=== PATIENT | female | born 1970 | race Caucasian/White ===

== ENCOUNTER 2019-10-27 07:09 | Outpatient (CLI) | payer OTHER ==
--- NOTE | 2019-10-27 07:56 | ULT ---
Hepatic sonogram with duplex evaluation HISTORY: Abnormal liver function tests. FINDINGS: Gallbladder has a normal appearance. No stones visible. Common duct is 0.6 cm. Liver is dif fusely echogenic without focal mass or intrahepatic biliary dilatation. No free fluid. Spleen is 9.7 cm. Good color and spectral Doppler flow within the hepatic and splenic arteries. Portal venous flow is t owards the liver. Hepatic venous flow is towards the IVC. IMPRESSION: Hepatosteatosis. No sonographic evidence of portal venous hypertension.
== END 2019-10-27 07:10 | disposition home or self-care (01) ==
LOC: BICULT 07:09
PROVIDERS: ATTEND Nurse Practitioner Family
DX: E78.2 Mixed hyperlipidemia (principal); R74.0 Nonspecific elevation of levels of transaminase and lactic acid dehydrogenase [LDH]; K76.0 Fatty (change of) liver, not elsewhere classified
CPT/HCPCS: 76705

== ENCOUNTER 2019-10-27 16:00 | Outpatient (CLI) | payer OTHER ==
--- NOTE | 2019-11-03 08:14 | MMO ---
Bilateral MAMMO Bilat Screen [facility]. CLINICAL HISTORY: Patient is 49 years old and is seen for screening. The patient has no family history of breast cancer. The patient has no personal history of cancer. VIEWS: The views performed were: bilateral craniocaudal with tomosynthesis and bilateral mediolateral oblique with tomosynthesis. FILMS COMPARED: The present examination has been compared to a prior imaging study performed at [facility] on 09/22/2012. This study has been interpreted with the assistance of computer-aided detection. MAMMOGRAM FINDINGS: There are scattered fibroglandular densities. There are no suspicious masses, suspicious calcifications, or new areas of architectural distortion. IMPRESSION: THERE IS NO MAMMOGRAPHIC EVIDENCE OF MALIGNANCY. A ROUTINE FOLLOW-UP MAMMOGRAM IN 1 YEAR IS RECOMMENDED. THE RESULTS OF THIS EXAM WERE SENT TO THE PATIENT. ACR BI-RADS Category 1 - Negative MAMMOGRAPHY NOTE: 1. A negative mammogram report should not delay a biopsy if a dominant of clinically suspicious mass is present. 2. Approximately 10% to 15% of breast cancers are not detected by mammography. 3. Adenosis and dense breasts may obscure an underlying neoplasm. Reported by: SHAVON GRAHAM MD Electonically Signed: [id number]
== END 2019-10-27 16:01 | disposition home or self-care (01) ==
LOC: BICMAMMO 16:00
PROVIDERS: ATTEND Nurse Practitioner Family
DX: Z12.31 Encounter for screening mammogram for malignant neoplasm of breast (principal)
CPT/HCPCS: 77063; 77067

== ENCOUNTER 2019-11-14 12:59 | Emergency (ER) | payer OTHER ==
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
--- NOTE | 2019-11-14 14:40 | RAD ---
EXAM: Chest 2 views: HISTORY: Chest pain COMPARISON: None. FINDINGS: There is a normal-sized cardiomediastinal silhouette. There is no evidence of consolidation, mass, or pleural effusion. The bones are unremarkable. IMPRESSION: No evidence of acute cardiopulmonary disease
[2019-11-14] MEDS ORDERED: HYDROcodone/Acetaminophen 5/325 mg Tablet ONE (15:05)
--- NOTE | 2019-11-14 15:25 | RAD ---
EXAM: 3 views of the right foot HISTORY: Foot pain COMPARISON: None FINDINGS: 3 views of the right foot shows no evidence of acute fracture or dislocation. No soft tissu e swelling is seen. No degenerative changes are present. IMPRESSION: No evidence of acute osseous abnormality.
== END 2019-11-14 16:48 | disposition home or self-care (01) ==
LOC: ERS 12:59
DX: S20.219A Contusion of unspecified front wall of thorax, initial encounter (principal); S80.12XA Contusion of left lower leg, initial encounter; S80.11XA Contusion of right lower leg, initial encounter; F17.210 Nicotine dependence, cigarettes, uncomplicated; F41.9 Anxiety disorder, unspecified; Z79.899 Other long term (current) drug therapy; V89.2XXA Person injured in unspecified motor-vehicle accident, traffic, initial encounter
CPT/HCPCS: 71046; 93005

== ENCOUNTER 2020-06-08 10:21 | Outpatient (CLI) | payer OTHER ==
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
== END 2020-06-08 10:22 | disposition home or self-care (01) ==
LOC: BICCT 10:21
PROVIDERS: ATTEND Psychiatry & Neurology Neurology
DX: S06.890A Other specified intracranial injury without loss of consciousness, initial encounter (principal)
CPT/HCPCS: 70450

== ENCOUNTER 2022-03-06 17:30 | Outpatient (CLI) | payer BC | END 2022-03-06 17:31 | disposition home or self-care (01) | LOC: SLEEPLAB 17:30 | PROVIDERS: ATTEND Nurse Practitioner Family | DX: G47.33 Obstructive sleep apnea (adult) (pediatric) (principal); R53.83 Other fatigue; R51.9 Headache, unspecified; F41.8 Other specified anxiety disorders; K21.9 Gastro-esophageal reflux disease without esophagitis; E66.9 Obesity, unspecified; R06.83 Snoring; G47.00 Insomnia, unspecified | CPT/HCPCS: 95800 ==

== ENCOUNTER 2023-11-18 15:13 | Outpatient (CLI) | payer OTHER | END 2023-11-18 15:14 | disposition home or self-care (01) | LOC: SCSRAD 15:13 | PROVIDERS: ATTEND Nurse Practitioner Family | DX: M25.561 Pain in right knee (principal) ==

== ENCOUNTER 2023-12-10 10:25 | Outpatient (CLI) | payer OTHER | END 2023-12-10 10:26 | disposition home or self-care (01) | LOC: BICMRI 10:25 | PROVIDERS: ATTEND Physician Assistant Medical | DX: S89.91XD Unspecified injury of right lower leg, subsequent encounter (principal); S83.241A Other tear of medial meniscus, current injury, right knee, initial encounter; S83.281A Other tear of lateral meniscus, current injury, right knee, initial encounter; M23.91 Unspecified internal derangement of right knee; M25.461 Effusion, right knee ==